=== PATIENT | female | born 2000 | race Two or more races ===

== ENCOUNTER → 2024-06-18 | Outpatient (CLI) | payer OTHER | LOC: M PLALAB 09:16 | PROVIDERS: ATTEND Nurse Practitioner Family | DX: Z34.80 Encounter for supervision of other normal pregnancy, unspecified trimester (principal) ==

== ENCOUNTER → 2024-07-16 | Outpatient (CLI) | payer OTHER ==
[2024-07-16 11:28] LABS: HEMATOCRIT 40.2 % (36.0-47.0); HEMOGLOBIN 13.4 g/dl (12.0-15.5); MEAN CORPUSCULAR HEMOGLOBIN 29.8 pg (27.0-33.0); MEAN CORPUSCULAR HGB CONC 33.3 g/dl (32.0-36.5); MEAN CORPUSCULAR VOLUME 89.3 fl (80.0-96.0); PLATELET COUNT, AUTOMATED 317 10^3/uL (150-450); WHITE BLOOD COUNT 12.1 10^3/uL (4.0-10.0)
[2024-07-16 12:21] LABS: HIV 1&2 SCREEN NEGATIVE (NEGATIVE)
[2024-07-16 12:29] LABS: HEPATITIS C VIRUS ABY INDEX 0.02 INDEX (<0.8)
[2024-07-16 13:26] LABS: GC DNA AMPLIFICATION NEGATIVE (NEGATIVE)
[2024-07-18 14:22] LABS: Trichomonas vaginalis (AMP) NOT DETECTED (NEGATIVE)
== END ==
LOC: M PLALAB 09:32
PROVIDERS: ATTEND Nurse Practitioner Family
DX: Z34.02 Encounter for supervision of normal first pregnancy, second trimester (principal)

== ENCOUNTER → 2024-07-28 | Outpatient (CLI) | payer OTHER | LOC: M WHC 08:38 | PROVIDERS: ATTEND Nurse Practitioner Family | DX: Z34.02 Encounter for supervision of normal first pregnancy, second trimester (principal); Z3A.19 19 weeks gestation of pregnancy ==

== ENCOUNTER → 2024-09-09 | Outpatient (CLI) | payer OTHER | LOC: M WHC 10:02 | PROVIDERS: ATTEND Nurse Practitioner Family | DX: Z34.82 Encounter for supervision of other normal pregnancy, second trimester (principal); Z3A.25 25 weeks gestation of pregnancy ==

== ENCOUNTER → 2024-11-20 | Outpatient (REF) | payer OTHER | LOC: M SFHCWAGY 13:07 | PROVIDERS: ATTEND Obstetrics & Gynecology | DX: Z34.03 Encounter for supervision of normal first pregnancy, third trimester (principal); Z3A.35 35 weeks gestation of pregnancy ==

== ENCOUNTER 2024-12-03 10:12 | Outpatient (CLI) | payer OTHER ==
[2024-12-03] VITALS (8 sets, daily range): BP systolic 114–138; BP diastolic 55–83; O2SAT 96
[~2024-12-03] VITALS: Ht 154.9 cm; Wt 102.5 kg
[2024-12-03] MEDS ORDERED: ASPI81CH33 PO (10:37)
[2024-12-03] MEDS ORDERED: PRENTAB9 PO (10:37)
[2024-12-03] MEDS ORDERED: TUMS750C5 PO (10:42)
[2024-12-03] MEDS ORDERED: HOME MED LIST COMPLETE! XX SCH (11:30)
[2024-12-03 11:52] LABS: PLATELET COUNT, AUTOMATED 225 10^3/uL (150-450)
[2024-12-03 12:02] LABS: TOTAL PROTEIN,RANDOM URINE 56.3 MG/DL (0.0-14.0)
[2024-12-03 12:22] LABS: LDH LACTATE DEHYDROGENASE 212 U/L (120-246)
[2024-12-03 12:23] LABS: ALT/SGPT 26 U/L (7.0-40); AST/SGOT 24 U/L (<34); CREATININE FOR GFR 0.57 MG/DL (0.55-1.30); GLOMERULAR FILTRATION RATE > 90.0 (>60)
[2024-12-03 12:56] LABS: HIV 1&2 SCREEN NEGATIVE (NEGATIVE)
== END 2024-12-03 14:11 | disposition home or self-care (01) ==
LOC: M LDO 10:12
PROVIDERS: ATTEND Advanced Practice Midwife
DX: O13.3 Gestational [pregnancy-induced] hypertension without significant proteinuria, third trimester (principal); O99.213 Obesity complicating pregnancy, third trimester; E66.9 Obesity, unspecified; O99.820 Streptococcus B carrier state complicating pregnancy; B95.1 Streptococcus, group B, as the cause of diseases classified elsewhere; Z3A.37 37 weeks gestation of pregnancy
CPT/HCPCS: 36415; 59025; 82247; 82570; 83615; 84156; 84450; 84460; 84550; 85027; 86780; 86850; 86900; 86901; 87389; G0463

== ENCOUNTER 2024-12-06 08:05 | Inpatient (IN) | payer OTHER ==
[~2024-12-06] VITALS: Ht 154.9 cm; Wt 104.5 kg
[2024-12-06] VITALS (16 sets, daily range): BP systolic 107–145; BP diastolic 55–87
[~2024-12-06 08:05] MED LIST: ASPI81CH33 PO; PRENTAB9 PO; TUMS750C5 PO
[2024-12-06] MEDS ORDERED: HOME MED LIST COMPLETE! XX SCH (08:30)
[2024-12-06] MEDS ORDERED: TRANEXAMIC ACID INJection 1,000 MG in NS 100 ML IV PRN (09:15)
[2024-12-06] MEDS ORDERED: CARBOPROST TROMETHAMINE 250 MCG/ML AMP IM PRN (09:15)
[2024-12-06] MEDS ORDERED: LIDOCAINE 1% MDV 20 ML VIAL INFIL PRN (09:15)
[2024-12-06] MEDS ORDERED: OXYTOCIN DRIP 30 UNITS in IV 1 EA IV PRN (09:15)
[2024-12-06 09:42] LABS: PLATELET COUNT, AUTOMATED 218 10^3/uL (150-450)
[2024-12-06 10:00] LABS: TOTAL PROTEIN,RANDOM URINE 42.5 MG/DL (0.0-14.0)
[2024-12-06 10:05] LABS: LDH LACTATE DEHYDROGENASE 211 U/L (120-246)
[2024-12-06 10:06] LABS: ALT/SGPT 22 U/L (7.0-40); AST/SGOT 19 U/L (<34); CREATININE FOR GFR 0.53 MG/DL (0.55-1.30); GLOMERULAR FILTRATION RATE > 90.0 (>60)
[2024-12-06 10:38] LABS: HIV 1&2 SCREEN NEGATIVE (NEGATIVE)
[2024-12-06] MEDS: AMPICILLIN SOD 2 GM in DEXTROSE 5% (D5W) MINI-BAG PLU 100 ML IV STA (10:41)
[2024-12-06] MEDS: miSOPROStol 50 MCG 1/2 TABLET PO PRN (10:41)
[2024-12-06] MEDS: LR 1,000 ML IV SCH (10:41)
[2024-12-06 10:46] LABS: HEPATITIS C VIRUS ABY INDEX < 0.02 INDEX (<0.8)
[2024-12-06] MEDS: AMPICILLIN SOD 1 GM in DEXTROSE 5% (D5W) ADV/MINI-BAG 50 ML IV SCH (14:54)
[2024-12-07] VITALS (35 sets, daily range): BP systolic 85–142; BP diastolic 44–96
[2024-12-07] MEDS: OXYTOCIN DRIP 30 UNITS in IV 1 EA IV SCH (17:20)
[2024-12-07] MEDS ORDERED: diphenhydrAMINE 50 MG/ML VIAL IV PRN (23:00)
[2024-12-07] MEDS ORDERED: EPIDURAL/PCA KEYS XX PRN (23:00)
[2024-12-07] MEDS ORDERED: NALOXONE INJ 0.4 MG/1 ML VIAL IV PRN (23:00)
[2024-12-08] VITALS (48 sets, daily range): BP systolic 91–165; BP diastolic 44–92; O2SAT 98
[2024-12-08] MEDS: LR 500 ML IV PRN (06:14)
[2024-12-08] MEDS: FENTANYL/ROPIVACAINE/NACL BAG 100 ML EPIDURAL SCH (06:16)
[2024-12-08] MEDS: ONDANSETRON 4MG 2ML VIAL IV PRN (07:51)
[2024-12-08] MEDS: OXYTOCIN INJ 10UNITS/ML 1ML VIAL IV ONE (20:08)
[2024-12-08] MEDS: METHYLERGONOVINE MALEATE 0.2 MG/ML 1 ML VIAL IM PRN (20:30)
[2024-12-08 20:44] LABS: CORD GAS ABE V -7.8; CORD GAS HCO3 V 17.5 MMOL/L; CORD GAS O2 SAT V 81.5 %; CORD GAS PCO2 V 35.7 mmHg; CORD GAS PH V 7.307 UNITS; CORD GAS PO2 V 36.3 mmHg; CORD GAS SBC V 17.9 MMOL/L; CORD GAS TCO2 V 18.5 MMOL/L
[2024-12-08 20:50] LABS: CORD GAS ABE A -8.2; CORD GAS HCO3 A 21.3 MMOL/L; CORD GAS O2 SAT A 71.2 %; CORD GAS PCO2 A 59.3 mmHg; CORD GAS PH A 7.174 UNITS; CORD GAS PO2 A 33.8 mmHg; CORD GAS SBC A 17.4 MMOL/L; CORD GAS TCO2 A 23.2 MMOL/L
[2024-12-08] MEDS ORDERED: MOM 30 ML SUSPENSION UDC PO PRN (20:50)
[2024-12-08] MEDS ORDERED: PROMETHAZINE 25 MG TAB PO PRN (20:50)
[2024-12-08] MEDS ORDERED: ACETAMINOPHEN 650 MG SUPP PR PRN (20:50)
[2024-12-08] MEDS ORDERED: ACETAMINOPHEN 500 MG TAB PO PRN (20:50)
[2024-12-08] MEDS ORDERED: DIBUCAINE 1% OINTMENT 30 GM TOP PRN (20:50)
[2024-12-08] MEDS ORDERED: ANUSOL HC CREAM 30 GM TOP PRN (20:50)
[2024-12-08] MEDS ORDERED: ACETAMINOPHEN 325 MG TAB PO PRN (20:50)
[2024-12-08] MEDS ORDERED: RHOGAM 300MCG (1500IU) INJ IM SCH (20:50)
[2024-12-08] MEDS ORDERED: DOCUSATE SODIUM 100 MG CAPSULE PO PRN (20:50)
[2024-12-08] MEDS ORDERED: METHYLERGONOVINE MALEATE 0.2 MG TAB PO PRN (20:50)
[2024-12-08] MEDS: OXYTOCIN DRIP 30 UNITS in IV 1 EA IV PRN (21:22)
[2024-12-08] MEDS: IBUPROFEN 800 MG TAB PO PRN (23:03)
[2024-12-09 06:00] VITALS: BP 135/79; O2SAT 99
[2024-12-09 07:15] LABS: PLATELET COUNT, AUTOMATED 219 10^3/uL (150-450)
[2024-12-09] MEDS: IBUPROFEN 600 MG TAB PO PRN (09:01)
[2024-12-09] MEDS: PRENATAL VITAMINS CHEWABLE TABLET PO SCH (09:01)
[2024-12-09 18:00] VITALS: BP 134/69; O2SAT 100
[2024-12-10 05:44] VITALS: BP 123/65; O2SAT 96
[2024-12-10] MEDS: MEASLES,MUMPS,RUBELLA VACCINE INJ (MMR-II) SC.IMMUN ONE (09:00)
== END 2024-12-10 16:55 | disposition home or self-care (01) | DRG 807 ==
LOC: M LDI 08:05 → M OBS 12-08 22:07
PROVIDERS: ADMIT Obstetrics & Gynecology; ATTEND Obstetrics & Gynecology
PROC: 3E0P7GC Introduction of Other Therapeutic Substance into Female Reproductive, Via Natural or Artificial Opening (ICD-10-PCS; 2024-12-06)
PROC: 10E0XZZ Delivery of Products of Conception, External Approach (ICD-10-PCS; principal; 2024-12-08)
DX: O13.4 Gestational [pregnancy-induced] hypertension without significant proteinuria, complicating childbirth (principal); Z37.0 Single live birth; Z3A.37 37 weeks gestation of pregnancy; O99.824 Streptococcus B carrier state complicating childbirth